=== PATIENT | male | born 1990 | race Caucasian/White ===

== ENCOUNTER 2022-06-28 18:44 | Emergency (ER) | payer OTHER ==
[2022-06-28 18:55] VITALS: BP 125/73; PULSE 59; RESP 20; TEMP 98.2
--- NOTE | 2022-06-28 19:24 | XR ---
EXAMINATION TYPE: XR wrist complete RT DATE OF EXAM: 06/28/2022 COMPARISON: NONE HISTORY: Fall. Pain TECHNIQUE: 4 views FINDINGS: Carpal bones appear intact. There is a lucent line projected over the distal radius that co uld be hairline fracture of the radial styloid process. No transverse fracture. No dislocation. The c arpal bones show normal joint spaces. Metacarpals are intact. IMPRESSION: There is possible hairline fracture of the radial styloid process.
[2022-06-28] MEDS ORDERED: ACET/COD 300 MG/30 MG STARTER PACK 6 TAB BTL PO STA (19:54)
[2022-06-28] MEDS ORDERED: ACETAMINOPHEN TAB 500 MG TAB PO STA (19:54)
[2022-06-28] MEDS ORDERED: IBUPROFEN 600 MG STARTER PACK 4 TAB BTL PO STA (19:54)
--- NOTE | 2022-06-28 19:56 | ED ---
Upper Extremity HPI - General Chief Complaint: Extremity Injury, Upper Stated Complaint: rt hand injury Time Seen by Provider: 06/28/22 19:38 Source: patient Mode of arrival: ambulatory Limitations: no limitations - History of Present Illness Initial Comments: Patient fell off a step stool when he was using a drill. Patient fell onto his right wrist and is complaining of pain to this area. Pain to the distal aspect of the wrist which is exacerbated by palpation and movement. No distal or proximal symptomology. There was no head or neck injury. Patient denying any paresthesias. No other injuries. No headache, no fever or chills, no changes in vision or hearing, no sore throat or difficulty with speech, no neck pain, no chest pain or shortness of breath, no abdominal pain, no nausea or vomiting, no changes in urination or bowel movements, no numbness or tingling,no skin rashes or lesions. Past medical, surgical, social, and family history reviewed. MD Complaint: Injury to:: right, wrist - Related Data Allergies Allergy/AdvReac Type Severity Reaction Status Date / Time No Known Allergies Allergy Verified 06/28/22 18:55 Review of Systems ROS Statement: Those systems with pertinent positive or pertinent negative responses have been documented in the HPI. ROS Other: All systems not noted in ROS Statement are negative. Past Medical History Past Medical History: No Reported History History of Any Multi-Drug Resistant Organisms: None Reported Past Surgical History: No Surgical Hx Reported Past Psychological History: No Psychological Hx Reported Smoking Status: Vaper Past Alcohol Use History: None Reported Past Drug Use History: Marijuana General Exam Limitations: no limitations General appearance: alert, in no apparent distress Head exam: Present: atraumatic, normocephalic, normal inspection Eye exam: Present: normal appearance Pupils: Present: normal accommodation ENT exam: Present: normal exam Neck exam: Present: normal inspection, full ROM. Absent: tenderness Respiratory exam: Present: normal lung sounds bilaterally. Absent: respiratory distress, wheezes, rales, rhonchi, stridor Cardiovascular Exam: Present: regular rate, normal rhythm, normal heart sounds. Absent: systolic murmur, diastolic murmur, rubs, gallop, clicks GI/Abdominal exam: Present: soft. Absent: tenderness Extremities exam: Present: normal inspection, full ROM, tenderness (Patient has tenderness of dorsum of the right wrist overlying the distal radius. No crepitus, no deformity, no break in skin integrity), normal capillary refill, other (Full range of motion with regard to phalanges, hand, wrist with pain, and proximally into the elbow. All other joints are normal. Normal range of motion . Normal strength in all her major muscle groups.). Absent: pedal edema, joint swelling Back exam: Present: normal inspection. Absent: tenderness Neurological exam: Present: alert, oriented X3, CN II-XII intact. Absent: motor sensory deficit Psychiatric exam: Present: normal affect, normal mood Skin exam: Present: warm, dry, intact, normal color Course Vital Signs 06/28/22 18:53 Temperature 98.2 F Pulse Rate 59 L Respiratory 20 Rate Blood Pressure 125/73 O2 Sat by Pulse 100 Oximetry Procedures - Orthopedic Splinting/Casting Injury #1 Side: right Upper Extremity Injury Location: short arm, wrist Upper Extremity Immobilizer: volar splint (Short arm) Lower Extremity Immobilizer: Jace wrap, fiberglass cast Additional Comments: Neurovascular status intact. Sling applied. Medical Decision Making - Medical Decision Making She has what appears be a hairline fracture through the distal radius. This is seen only on one view. However this does fit the area of the patient's pain. Patient placed in a short arm volar splint. Distal neurovascular status was intact. Patient given follow-up information for orthopedics. Tylenol with Codeine starter pack. QUESTIONS answered. Treatment plan discussed. Patient voiced understanding. Patient was told to return to the ER for any signs or symptoms worsen. Told to return immediately if any other problems arise. All questions answered. Treatment plan discussed. Patient in agreement Every effort has been made to ensure accuracy of this dictation. However, due to the limitations of electronic medical records and dictation devices, errors in charting still occur. Front Desk Dr. Garcia Disposition Clinical Impression: Fracture of radius, distal, right, closed Disposition: HOME SELF-CARE Condition: Good Instructions (If sedation given, give patient instructions): Arm Fracture in Adults (ED), How to Use a Sling (ED), Splint Care (ED) Additional Instructions: Keep the splint on until follow-up. Elevate as much as possible. Apply ice but did not get this wanting material with. Ice 20 minutes on and off. Wear the sling when up and about. Use regular Tylenol for pain control. If the pain is bad you can use the acetaminophen with codeine. However did not use this with Tylenol --they both are acetaminophen based. He can also use the ibuprofen as needed for additional pain control. Call tomorrow morning to orthopedics to set up an appointment. Return to the ER immediately if any symptoms worsen, new symptoms arise, or any other problems develop. Is patient prescribed a controlled substance at d/c from ED?: No Referrals: Tiago Valdes MD [Medical Doctor] - 1-2 days Time of Disposition: 19:54
== END 2022-06-28 20:30 | disposition home or self-care (01) ==
LOC: EC 18:44
DX: S52.501A Unspecified fracture of the lower end of right radius, initial encounter for closed fracture (principal); F17.209 Nicotine dependence, unspecified, with unspecified nicotine-induced disorders; W08.XXXA Fall from other furniture, initial encounter
CPT/HCPCS: 29125; 99283